=== PATIENT | male | born 1995 | race Hispanic/Latino ===

== ENCOUNTER 2020-12-17 19:48 | Observation (INO) | payer SELFPAY ==
--- NOTE | ~2020-12-17 | CT_ITS ---
EXAMINATION: CT abdomen pelvis w con DATE: 12/17/2020 20:52 INDICATION: Severe epigastric abdominal pain, vomiting, diarrhea TECHNIQUE: Computed tomography (CT) of the abdomen and pelvis was performed with 100 cc Omnipaque 350 intravenous contrast. Automated exposure control and iterative reconstruction technique were employe d. Exam dose: 566.60 mGy-cm total exam DLP. COMPARISON: None. FINDINGS: The lung bases are clear. Normal heart size. No pericardial or pleural effusion. The liver, gallbladder, bile ducts, spleen, pancreas and pancreatic duct as well as adrenal glands an d kidneys appear normal. No urinary tract calculus or hydroureteronephrosis. Normal caliber of the abdominal aorta. No intraperitoneal or retroperitoneal or pelvic mass lesion or adenopathy or ascites. The appendix measures up to 9.5 mm diameter. There is minimal periappendiceal fat stranding. Findings suggest acute appendicitis. Minimal colonic diverticulosis; no CT evidence of diverticulitis. The urinary bladder and prostate gland are unremarkable. Small fat-containing umbilical hernia. Included skeletal structures are unremarkable. IMPRESSION: Acute appendicitis Reviewed, dictated and finalized at [facility]. Reviewed, dictated and finalized at [facility]. IMPRESSION: Acute appendicitis
[2020-12-17 19:50] VITALS: BP 151/86; PULSE 88; RESP 17; TEMP 36.6; O2SAT 100
[2020-12-17 20:22] LABS: Basophils Absolute Auto 0.1 K/mm3 (0.0-0.1); Basophils Percent Auto 0.3 % (0.2-1.2); Eosinophils Percent Auto 0.2 % (0-4.4); Hematocrit 48.6 % (42.0-52.0); Hemoglobin 17.1 g/dL (14.0-18.0); Immature Granulocyte Absolute 0.07 K/mm3 (0.00-0.031); Immature Granulocyte Percent A 0.4 % (0-0.5); Lymphocytes Absolute Auto 0.92 K/mm3 (0.9-3.2); Lymphocytes Percent Auto 5.3 % (18.3-44.2); Mean Corpuscular HGB Conc 35.2 g/dl (32-36); Mean Corpuscular Hemoglobin 31.8 pg (26-34); Mean Corpuscular Volume 90.3 fl (80-100); Mean Platelet Volume 9.4 fl (7.4-10.4); Monocytes Absolute Auto 0.8 K/mm3 (0.1-0.6); Monocytes Percent Auto 4.4 % (2.6-8.5); Neutrophils Absolute Auto 15.4 K/mm3 (1.3-6.7); Neutrophils Percent Auto 89.4 % (45.5-73.1); Platelet Count Result 337 k/mm3 (150-375); Red Blood Count 5.38 M/mm3 (4.6-6.20); Red Cell Distribution Width 12.3 % (11.5-14.5); White Blood Count 17.2 K/mm3 (4.5-10.0)
[2020-12-17 20:30] LABS: Alanine Aminotransferase 33 U/L (4-50); Albumin Level 5.1 g/dL (3.5-5.1); Alkaline Phosphatase 86 U/L (38-126); Anion Gap 12 mmol/L (8-16); Aspartate Amino Transferase 31 U/L (17-59); Bilirubin,Total 1.5 mg/dL (0.2-1.3); Blood Urea Nitrogen 12 mg/dL (9-20); Calcium 9.5 mg/dL (8.4-10.2); Carbon Dioxide 23 mmol/L (22-30); Chloride 104 mmol/L (98-107); Estimated CRCL calculation 148 ml/min; Estimated Glomerular Filt Rate > 60; Glucose 138 mg/dL (65-110); Lipase 34 U/L (23-300); Potassium 3.9 mmol/L (3.4-5.0); Sodium 139 mmol/L (137-145)
--- NOTE | 2020-12-17 20:47 | ED.ABDPAIN ---
HPI - Abdominal Pain General Chief Complaint: Abdominal Pain Stated Complaint: epigastric pain Time Seen by Provider: 12/17/20 19:57 Source: patient Mode of arrival: ambulatory Limitations: language barrier (Korean-speaking) History of Present Illness HPI narrative: Patient presents with chief complaint of severe epigastric discomfort that is 8 out of 10 that began this morning after eating [place] food last night. Patient states that he feels that this may be the cause of his symptoms but he is not sure as he has never had a response to [address]. He states he had 5 bouts of vomiting. He reports that even vomiting will try to drink water or take Pepto-Bismol. Patient states he is also had a few episodes of diarrhea. Patient denies fever, chills, nausea. Patient denies chest pain or shortness of breath. Patient states that he does not have a history of pancreatitis, GERD. Patient denies alcohol usage. Related Data Home Medications Medication Instructions Recorded Confirmed No Home Medications 12/17/20 12/17/20 Allergies Allergy/AdvReac Type Severity Reaction Status Date / Time No Known Allergies Allergy Verified 12/17/20 19:53 Review of Systems Review of Systems: CONSTITUTIONAL: Denies fever, chills, or sweats. EYES: Denies visual changes, redness, or discharge. ENT: Denies rhinorrhea, congestion, sore throat, or otalgia. CARDIOVASCULAR: Denies chest pain, palpitations, or edema. RESPIRATORY: Denies cough or dyspnea. GASTROINTESTINAL: Reports epigastric pain vomiting and diarrhea denies nausea GENITOURINARY: Denies dysuria or hematuria. SKIN: Denies rash or itching. MUSCULOSKELETAL: Denies back pain, joint pain, or myalgia. NEUROLOGIC: Denies headache, numbness, dizziness, or weakness. PSYCHIATRIC: Denies anxiety or depression. PMFSH Social History Social History Gender identity (if verbalized by the patient): Male Exam Narrative: GENERAL: Well-appearing, well-nourished, and in no acute distress. HEAD: Normocephalic, atraumatic. EYES: PERRLA and EOMI. CHEST: Clear to auscultation. No respiratory distress. No wheezes rales or rhonchi HEART: Regular rate and rhythm. No murmur heard. Normal peripheral pulses. ABDOMEN: Soft, tender with palpation epigastrically, nondistended, normal active bowel sounds. EXTREMITIES: Normal range of motion. No edema. SKIN: Warm, dry, no rash. NEURO: No focal deficits. Alert and oriented x3. PSYCH: Normal mood and affect. Course Vital Signs Vital signs: Vital Signs Temperature 97.9 F 12/17/20 19:50 Pulse Rate 88 12/17/20 19:50 Respiratory Rate 17 12/17/20 19:50 Blood Pressure 151/86 H 12/17/20 19:50 Pulse Oximetry 100 12/17/20 19:50 Temperature 97.9 F 12/17/20 19:50 Pulse Rate 88 12/17/20 19:50 Respiratory Rate 17 12/17/20 19:50 Blood Pressure 151/86 H 12/17/20 19:50 Pulse Oximetry 100 12/17/20 19:50 MDM - Abdominal Pain MDM Narrative Medical decision making narrative: Translation line used to speak with patient. Consult Dr. Ortiz. Is CT showed appendicitis. Patient is still denying any pain to his right lower quadrant and states that the pain is in his epigastric area. Discussed with the patient the need for admission and surgical removal of his appendix. Discussed that the general surgeon will meet with him and evaluate him tomorrow. Patient is to be given Zosyn, fluids and pain control.patient is nontoxic in appearance and comfortable at this time. All questions answered patient is in agreement with admission. L Lab Data Result diagrams: 12/17/20 20:10 12/17/20 20:10 Labs: Lab Results 12/17/20 12/17/20 Range/Units 20:10 20:10 WBC 17.2 H (4.5-10.0) K/mm3 RBC 5.38 (4.6-6.20) M/mm3 Hgb 17.1 (14.0-18.0) g/dL Hct 48.6 (42.0-52.0) % MCV 90.3 (80-100) fl MCH 31.8 (26-34) pg MCHC 35.2 (32-36) g/dl RDW 12.3 (11.5-14.5) % Plt Count 337
[2020-12-17] MEDS: BELLADONNA ALK/PHENOB ELIX 10 ML, MAG HYDROX/ALUMINUM HYD/SIMETH 30 ML, LIDOCAINE HCL 2... PO (20:49)
[2020-12-17] MEDS: SODIUM CHLORIDE 0.9% IV 1,000 ML 150 ML IV CONT (21:47)
[2020-12-17] MEDS: HYDROmorphone HCL INJ (*CRX) 1 MG/ML SYR 0.5 MG IV PUSH (21:47)
[2020-12-17 22:16] LABS: Add Urine Microscopic? YES; Appearance Urine Clear (Clear); Bacteria Urine Trace /hpf; Bilirubin Urine Negative (Negative); Blood Urine Negative (Negative); Color Urine Straw (Yellow); Glucose Urine UA Negative (Negative); Ketones Urine Trace mg/dL (Negative); Leukocyte Esterase Ur Negative LEU/UL (Negative); Mucus Urine Rare /lpf; Nitrate Urine Negative (Negative); Protein Urine Negative (Negative); Squamous Epithelial Cell Urine Rare /hpf (Few); Urobilinogen Urine Negative mg/dL (<2.0); WBC Urine 0-3 /hpf
[2020-12-17 22:21] LABS: Specific Grav Ur 1.005 (1.001-1.035)
--- NOTE | 2020-12-17 22:22 | PC.NURSE ---
sent pt to floor with fluids.
[2020-12-17 22:41] VITALS: BP 135/71; PULSE 62; RESP 16; TEMP 37.2; O2SAT 99
[2020-12-17] MEDS: SODIUM CHLORIDE 0.9% IV 1,000 ML 150 ML (22:45)
--- NOTE | 2020-12-17 23:27 | PC.NURSE ---
This patient, Laura Hardy, was admitted to 2 Medical Room 240-01. Patient/family oriented to hospital policies and general routines including ID bracelet, bed and alarms, visiting hours, pain management, procedures, bathroom and other care routines, personal items, smoking policy, room service/diet, and visiting hours. Information on how to activate the Rapid Response Team has been discussed. Patient/Family are encouraged to report perceived risks to care and to ask questions if they do not understand what they are told or what they should do. Admission done with language stratus
[2020-12-18] VITALS (12 sets, daily range): BP systolic 114–147; BP diastolic 51–85; PULSE 60–94; RESP 10–20; TEMP 36.1–37.1; O2SAT 96–100; BMI 28.8
[2020-12-18] MEDS: SODIUM CHLORIDE 0.9% IV 1,000 ML 150 ML IV CONT (07:56)
--- NOTE | 2020-12-18 09:31 | PM.IMHP ---
H&P: HPI History of Present Illness Date/Time: 12/18/20 09:31 Chief Complaint: Epigastric and RLQ abdominal pain Narrative: This is a 25-year-old Faroese-speaking male with no significant past medical history, who presented to the ER last night with complaints of epigastric abdominal pain. He reports an onset of epigastric abdominal pain starting 2 nights ago. This pain progressively worsened and into this morning has started to move towards the RLQ. He reports associated nausea and vomiting. No fever or chills. Due to the unrelenting pain, he presented to the ER for evaluation. CT scan of the abdomen and pelvis showed acute uncomplicated appendicitis. Labs revealed a white blood cell count of 17,200. Our service was contacted by the ED physician and he was admitted in this setting for surgical evaluation. The patient is now seen and reports his pain is worse in the RLQ. No other complaints at this time. No previous surgical history. Review of Systems Review of Systems: All systems reviewed & are unremarkable except as noted in HPI and below Constitutional: Constitutional: Reports as per HPI, Denies chills, Denies fatigue and Denies fever(s) ENT: Reports system reviewed and no additional complaints, except as documented and Reports Normal hearing present Cardiovascular: Cardiovascular: Reports no additional cardiovascular complaints, Denies chest pain and Denies leg edema Respiratory: Respiratory: Reports no additional respiratory complaints, Denies cough and Denies dyspnea Gastrointestinal: Gastrointestinal: Reports as per HPI, Reports no additional gastrointestinal complaints, Reports abdominal pain, Denies change in bowel habits, Denies change in stool character, Denies diarrhea, Reports nausea and Reports vomiting (last emesis yesterday) Genitourinary: Genitourinary: Denies hematuria and Denies dysuria Musculoskeletal: Musculoskeletal: Denies abnormal gait, Denies deformity and Denies joint swelling Integumentary/Breasts: Skin/Breast: Denies wounds Neurologic: Reports system reviewed and no additional complaints, except as documented, Denies dizziness, Denies focal weakness, Denies numbness and Denies tingling PMFSH Past Medical History Medical History No pertinent past medical history Surgical History Surgical History No significant past surgical history Family History Family History Other No pertinent family history Social History Social History Smoking status: Current some day smoker Tobacco type: cigarettes Additional smoking assessment comments: 2 cigarettes on the weekends Alcohol intake: current Drinks per week: 6 Substance use: never Occupation/Education: occupation Additional occupation/education comments: Construction Gender identity (if verbalized by the patient): Male Spiritual care concerns: No Meds Home Medications and Allergies Home Medications Medication Instructions Recorded Confirmed Type No Home Medications 12/17/20 12/17/20 History Allergies Allergy/AdvReac Type Severity Reaction Status Date / Time No Known Allergies Allergy Verified 12/18/20 09:18 Vital Signs Vital Signs - 24 hr 12/17/20 19:50 12/17/20 22:41 12/18/20 06:00 Temperature 97.9 F 98.9 F 97.5 F L Pulse Rate 88 62 63 Respiratory Rate 17 16 16 Blood Pressure 151/86 H 135/71 114/52 L Pulse Oximetry 100 99 100 Exam Const: General: comfortable, no acute distress, alert and awake Nutritional Appearance: average body habitus Orientation/consciousness: patient oriented x3 HENMT: Head: normocephalic and atraumatic Ears: hearing grossly normal bilaterally and external ears normal Mouth: Yes moist mucous membranes Eyes: General: appearance normal, both eyes and
[2020-12-18] MEDS: LACTATED RINGERS 1,000 ML 30 ML IV CONT ×2 (09:37→12:09)
--- NOTE | 2020-12-18 09:59 | WPDANESEPPF ---
Anes - Initial Pre Proc Eval Procedure: Operation Date: 12/18/20 11:00 Proposed Procedures p Laparoscopic Appendectomy - Andrea Ortiz DO Date/Time: 12/18/20 09:59 Surgeon: Andrea Ortiz DO Pre Op Diagnosis: Acute appendicitis Patient Data Age: 25 Gender: M Height: 1.7 m Weight: 83.3 kg Last Vital Signs Temp 36.8 C 12/18/20 09:43 Pulse 78 12/18/20 09:43 Resp 16 12/18/20 09:43 BP 138/57 L 12/18/20 09:43 Pulse Ox 99 12/18/20 09:43 Allergies Allergy/AdvReac Type Severity Reaction Status Date / Time No Known Allergies Allergy Verified 12/18/20 09:18 Home Medications Medication Instructions Recorded Confirmed Type No Home Medications 12/17/20 12/17/20 History Laboratory Tests 12/17/20 12/17/20 12/17/20 20:10 20:10 21:48 WBC 17.2 K/mm3 H K/mm3 (4.5-10.0) RBC 5.38 M/mm3 M/mm3 (4.6-6.20) Hgb 17.1 g/dL g/dL (14.0-18.0) Hct 48.6 % % (42.0-52.0) MCV 90.3 fl fl (80-100) MCH 31.8 pg pg (26-34) MCHC 35.2 g/dl g/dl (32-36) RDW 12.3 % % (11.5-14.5) Plt Count 337 k/mm3 k/mm3 (150-375) MPV 9.4 fl fl (7.4-10.4) Immature Gran % (Auto) 0.4 % % (0-0.5) Neut % (Auto) 89.4 % H % (45.5-73.1) Lymph % (Auto) 5.3 % L % (18.3-44.2) [place] % (Auto) 4.4 % % (2.6-8.5) Eos % (Auto) 0.2 % % (0-4.4) Baso % (Auto) 0.3 % % (0.2-1.2) Lymph # (Auto) 0.92 K/mm3 K/mm3 (0.9-3.2) [place] # (Auto) 0.8 K/mm3 H K/mm3 (0.1-0.6) Eos # (Auto) 0.0 K/mm3 K/mm3 (0-0.3) Baso # (Auto) 0.1 K/mm3 K/mm3 (0.0-0.1) Abs Immat Gran (auto) 0.07 K/mm3 H K/mm3 (0.00-0.031) Absolute Neuts (auto) 15.4 K/mm3 H K/mm3 (1.3-6.7) Absolute Nucleated RBC 0.0 K/mm3 K/mm3 (0.0-0.012) Nucleated RBC % 0.0 % % (0.0-0.2) Sodium 139 mmol/L mmol/L (137-145) Potassium 3.9 mmol/L mmol/L (3.4-5.0) Chloride 104 mmol/L mmol/L (98-107) Carbon Dioxide 23 mmol/L mmol/L (22-30) Anion Gap 12 mmol/L mmol/L (8-16) BUN 12 mg/dL mg/dL (9-20) Creatinine 0.60 mg/dL L mg/dL (0.7-1.3) Estim Creat Clear Calc 148 ml/min ml/min Estimated GFR > 60 (59 - ) Glucose 138 mg/dL H mg/dL (65-110) Calcium 9.5 mg/dL mg/dL (8.4-10.2) Total Bilirubin 1.5 mg/dL H mg/dL (0.2-1.3) AST 31 U/L U/L (17-59) ALT 33 U/L U/L (4-50) Alkaline Phosphatase 86 U/L U/L (38-126) Total Protein 8.0 g/dL g/dL (6.3-8.2) Albumin 5.1 g/dL g/dL (3.5-5.1) Lipase 34 U/L U/L (23-300) Urine Color Straw (Yellow) Urine Appearance Clear (Clear) Urine pH 6.0 (5.0-9.0) Ur Specific [place] 1.005 (1.001-1.035) Urine Protein Negative mg/dL mg/dL (Negative) Urine Glucose (UA) Negative mg/dL mg/dL (Negative) Urine Ketones Trace mg/dL mg/dL (Negative) Ur Blood (Man) Negative (Negative) Urine Nitrate Negative (Negative) Urine Bilirubin Negative (Negative) Urine Urobilinogen Negative mg/dL mg/dL (<2.0) Leukocyte Esterase Rfl Negative FIDE/UL FIDE/UL (Negative) Urine RBC 3-5 /hpf H /hpf (0-2) Urine WBC 0-3 /hpf /hpf Ur Squamous Epith Cells Rare /hpf /hpf (Few) Urine Bacteria Trace /hpf /hpf Urine Mucus Rare /lpf /lpf Patient hx anesthesia problems: none Family hx anesthesia problems: none PMFSH Past Medical History Medical History No pertinent past medical history Surgical History Surgical History No sig
--- NOTE | 2020-12-18 10:18 | WPDHPUPDATE1 ---
History and Physical Update Update Date/Time: 12/18/20 10:18 History and Physical has been reviewed, including an updated exam of the patient. There are NO changes in the patient's condition. Risks, benefits, and alternatives have been discussed and questions answered. Patient agrees to proceed with procedure.
[2020-12-18] MEDS: KETOROLAC 30 MG/ML VIAL (*BKC) IV PUSH (11:52)
--- NOTE | 2020-12-18 12:03 | W.PM.PROC2 ---
Procedure Note - Detailed Date of Procedure 12/18/20 Pre-op Diagnosis Acute appendicitis Post-op Diagnosis same Procedure Performed Laparoscopic appendectomy Surgeon Andrea Ortiz, DO Anesthesia general and local (0.5% bupivicaine with epinephrine) Indications This is a 25-year-old man who presented to the emergency department overnight with complaints of epigastric abdominal pain. Pain started yesterday morning and has progressed throughout the day. In the emergency department he was noted to have an elevated white blood count and CT showed evidence of acute appendicitis. He was started on Zosyn and admitted for observation and further treatment. Discussions were made with the patient about treatment options and decision was made to proceed with laparoscopic appendectomy, possible open. Findings Laparoscopic appendectomy was performed. The appendix appeared indurated and dilated, but there was no evidence of perforation or abscess. The base of the appendix appeared healthy and viable. The appendix was removed and sent to the lab for pathology. No other intra-abdominal abnormalities were noted. Description of Procedure Procedure as well as risks, benefits, and alternatives were explained to the patient. The patient agreed to proceed. Written consent was obtained and placed in chart prior to procedure. The patient was brought back to surgical suite. He was placed supine on operating table. Time-out was done to confirm the patient and procedure. The patient was then intubated by the Anesthesia Department. His abdomen was prepped and draped in sterile fashion using chlorhexidine prep. A 5 mm incision was made just to the left of the patient's umbilicus and a 5 mm Optiview trocar was advanced through the abdominal layers under direct visualization. Once inside the peritoneal cavity, carbon dioxide insufflation was used to create a pneumoperitoneum. The camera was inserted and the abdomen was inspected. No immediate abnormalities were identified. The patient was then placed in slight Trendelenburg position and rotated to the left. A 5 mm incision was made in the suprapubic region in midline and a 5 mm trocar was inserted under direct visualization. A 12 mm incision was made in the left lower quadrant and a 12 mm trocar was inserted under direct visualization. The right lower quadrant was carefully inspected. The cecum was identified and then this was traced back to the appendix. The appendix was identified and grasped at the mesoappendix and lifted anteriorly. Careful blunt dissection was carried out at the base of the appendix through the mesoappendix using a [place] grasper. An Endo-PAYTON 45 mm blue load stapler was then advanced across the base of the appendix and clamped and fired. A white reload was then clamped across the mesoappendix and fired. This freed up our appendix completely. It was then placed in an EndoCatch bag and removed through the left lower quadrant port. The staple lines were then inspected. Hemostasis appeared adequate and the staple lines appeared secure. The area was then irrigated with sterile saline. The pelvis was then carefully inspected and irrigated with sterile saline as well and the remainder of the abdomen was carefully inspected. The patient was then flattened out in bed. One final inspection was made around the abdominal cavity and no other abnormalities were seen. The left lower quadrant port was removed and a Og-Lloyd cone was used to approximate the fascia with an 0 Vicryl simple interrupted suture. The remaining ports were then removed under direct visualization. The camera was removed and the pneumoperitoneum was released. 0.5% bupivacaine with epinephrine was infiltrated locally around each of the incisions. The skin of the incisions was then approximated using 4-0 Monocryl subcuticular suture and Exofin glue was applied on top. The patient was then awakened from anesthesia, extubated, an
--- NOTE | 2020-12-18 13:08 | SUR.PHASEI ---
Used mammography technician services to inform patient of surgery being complete, assess pain level, inform that he would be returning to his hospital room shortly. No questions from patient
--- NOTE | 2021-01-05 13:51 | PM.DS ---
DS: Admitting Diagnosis Discharge Date 12/18/20 Admitting Diagnosis Acute appendicitis DS: Discharge Diagnosis Discharge Diagnosis (1) Acute appendicitis: Qualifiers: Acute appendicitis type: with localized peritonitis Appendicitis abscess presence: without abscess Appendicitis gangrene presence: without gangrene Appendicitis perforation presence: without perforation Qualified Code(s): K35.30 - Acute appendicitis with localized peritonitis, without perforation or gangrene Code(s): K35.80 - Unspecified acute appendicitis Status: Acute DS: Summary Hospital Course Reason for hospitalization: acute appendicitis Hospital Course: this is a 25-year-old man who presented to the emergency department on 12/17/2020 with right lower quadrant pain. He was found to have evidence of acute appendicitis and was admitted for further treatment. He underwent laparoscopic appendectomy on 12/18/2020. His diet and activity were advanced as tolerated postoperatively. He remained hemodynamically stable and was tolerating a regular diet and was discharged on 12/18/2020. Status at Discharge Functional status at discharge: independent ambulation Overall status at discharge: patient is progressing back to baseline Time Spent with Patient Time attestation: Total time spent providing and/or coordinating discharge services: Time spent: Less than 30 minutes Exam Narrative: Unchanged from preop exam DS: Data Data Completed and Pending Completed studies during hospitalization: Pending at discharge 12/18/20 11:12 Surgical [PTH] Routine Imaging Radiologist's impression: ITS Impressions Abdomen/Pelvis CT 12/17/20 21:05 IMPRESSION: Acute appendicitis Discharge Plan Discharge Attending physician on discharge: Andrea Ozuna Consulting providers: Uziel Ortega ; Erika Carrasquillo ; Korey Maciel ; Barbi Yang Discharging Clinician: Andrea Ozuna Anticipated Discharge Date/Time: 12/18/20 15:00 Patient Disposition: Home, Self-Care Activity: other - see discharge instructions Diet: regular Wound Care Instructions: other - see discharge instructions Discharge Instructions: DISCHARGE INSTRUCTION SHEET FOR HERNIA, GALLBLADDER AND APPENDIX SURGERIES DR. OZUNA PATIENT TO TAKE HOME 1. May shower in 24 hours, no soaking in bath x 2weeks. 2. Call office for: Wound increasingly painful or bleeding Vomiting Fever of greater than 101 degrees 3. If no bowel movement for three days, take 1 oz. (30 ml) Milk of Magnesia or MiraLax 17g 1 to 2 times daily. 4. No heavy lifting > 10-15 pounds x 2 weeks for hernia repairs and 2 weeks for laparoscopic cholecystectomy or appendectomy. 5. No driving for 3 days or while taking narcotic pain medications. 6. Ice to surgical site for 48 hours (30 min on, then 30 min off). 7. Up walking 10-30 minutes three times per day. 8. Resume previous home medications. 9. Follow-up 10-14 days in office for wound check or as previously scheduled. ([id number]) 10. Oral pain medications prescription to be sent to pharmacy. Take Tylenol 500mg every 6 hours and Ibuprofen 600mg every 6 hours for the first 2 days, then as needed. 11. NUTRITION: Start out by drinking fluids and increase your diet as tolerated. If you experience nausea, try dry toast, crackers, and 7-UP. If nausea or vomiting persists, contact your surgeon?s office. 12. Gallbladders-Low Fat Diet for 2 weeks (send care note of low fat diet) 13. Inguinal Hernias-wear scrotal support for 48 hours 14. Abdominal Hernias-if sent home with abdominal binder, wear for the first 2 weeks (may remove to shower or at night to sleep).
== END 2020-12-18 17:04 | disposition home or self-care (01) ==
LOC: ANHED 21:15 → ANH2MED 21:43
PROVIDERS: Emergency Medicine; Admitting Provider Surgery; Emergency Provider Emergency Medicine; Visit Provider Surgery
PROC: 0DTJ4ZZ Resection of Appendix, Percutaneous Endoscopic Approach (ICD-10-PCS; CPT 44970; principal; 2020-12-18 11:00)
DX: K35.30 Acute appendicitis with localized peritonitis, without perforation or gangrene (principal); F17.210 Nicotine dependence, cigarettes, uncomplicated
CPT/HCPCS: 44970; 36415; 74177; 80053; 81001; 83690; 85025; 88304; 96361; 96365; 96367; 96375; 96376; 99285; A9270; G0378; G0379; J0131; J0330; J1170; J1885; J2250; J2405; J2543; J2704; J2710; J3010; J7030; J7120; Q9967